=== PATIENT | male | born 1990 | race African-American/Black ===

== ENCOUNTER 2016-11-28 16:10 | Emergency (ER) | payer OTHER ==
[~2016-11-28] VITALS: Ht 185.4 cm; Wt 75.0 kg
[2016-11-28 17:28] LABS: APPEARANCE,URINE CLEAR (CLEAR); GLUCOSE, URINE (UA) NEGATIVE (NEGATIVE); KETONES,URINE NEGATIVE (NEGATIVE); OCCULT BLOOD,URINE NEGATIVE (NEGATIVE); PROTEIN,URINE TRACE (NEGATIVE)
[2016-11-28 17:37] LABS: ADD UA MICROSCOPIC YES; LEUKOCYTE ESTERASE ,URINE MODERATE (NEGATIVE); RBC,URINE 0-2 /HPF (0-2); SQUAMOUS EPITHELIAL CELL,UR Rare /LPF (None Seen); WBC,URINE 26-50 /HPF (0-5)
[2016-11-28 18:00] VITALS: BP 126/70
[2016-11-28] MEDS ORDERED: CefTRIAXone SODIUM 1 GM/VIAL IM ONE (18:00)
[2016-11-28] MEDS ORDERED: LIDOCAINE HCL/PF 1% 2 ML VIAL IM ONE (18:00)
[2016-11-28] MEDS ORDERED: AZITHROMYCIN 250 MG TABLET PO ONE (18:00)
== END 2016-11-28 18:39 | disposition home or self-care (01) ==
LOC: EMS 16:14
DX: N45.1 Epididymitis (principal); A64 Unspecified sexually transmitted disease; F17.210 Nicotine dependence, cigarettes, uncomplicated
CPT/HCPCS: 76870; 80307; 81001; 87086; 96372; 99285; 99406; J0696; J3490

== ENCOUNTER 2021-09-01 12:36 | Emergency (ER) | payer OTHER ==
[~2021-09-01] VITALS: Ht 188 cm; Wt 75.9 kg
[2021-09-01 13:28] LABS: APPEARANCE,URINE CLEAR (CLEAR); GLUCOSE, URINE (UA) NEGATIVE (NEGATIVE); KETONES,URINE TRACE mg/dL (NEGATIVE); LEUKOCYTE ESTERASE ,URINE SMALL (NEGATIVE); NITRATE,URINE NEGATIVE (NEGATIVE); OCCULT BLOOD,URINE NEGATIVE (NEGATIVE); PROTEIN,URINE NEGATIVE (NEGATIVE)
[2021-09-01 13:29] LABS: BILIRUBIN,URINE PRELIM. POSITIVE (NEGATIVE)
[2021-09-01 13:31] LABS: BACTERIA,URINE None Seen /HPF (None Seen); RBC,URINE None Seen /HPF (0-2)
[2021-09-01 14:09] VITALS: BP 118/65
[2021-09-01] MEDS ORDERED: LIDOCAINE/PF 1% 2 ML VIAL IM ONE (15:00)
[2021-09-01] MEDS ORDERED: AZITHROMYCIN 500 MG TABLET PO ONE (15:00)
[2021-09-01] MEDS ORDERED: CefTRIAXone SODIUM 1 GM/VIAL IM ONE (15:00)
[2021-09-01] MEDS ORDERED: IBUP-2070 PO (15:01)
[2021-09-01] MEDS ORDERED: LEVO-72 PO (15:01)
== END 2021-09-01 15:32 | disposition home or self-care (01) ==
LOC: EMS 12:45
DX: N45.1 Epididymitis (principal); F17.210 Nicotine dependence, cigarettes, uncomplicated
CPT/HCPCS: 76870; 81001; 87491; 87591; 96372; 99284; J0696; J3490; Q9967